=== PATIENT | female | born 1950 | race Caucasian/White ===

== ENCOUNTER → 2016-12-18 | Outpatient (CLI) | payer OTHER, MEDICARE ==
[2016-12-18 09:31] LABS: BASOPHILS # (AUTO) 0.1 X10^3/uL (0.0-0.1); EOSINOPHILS # (AUTO) 0.1 x10^3/uL (0.0-0.2); EOSINOPHILS % (AUTO) 1.2 % (0.9-2.9); HEMATOCRIT 42.9 % (36.0-47.0); HEMOGLOBIN 14.4 g/dL (12.0-16.0); LYMPHOCYTES # (AUTO) 2.9 X10^3/uL (1.3-2.9); LYMPHOCYTES % (AUTO) 38.4 % (21.0-51.0); MEAN CORPUSCULAR HGB CONC 33.6 g/dL (33.0-35.0); MEAN CORPUSCULAR VOLUME 92.1 fL (80.0-100.0); MEAN PLATELET VOLUME 7.9 fL (7.4-11.0); MONOCYTES # (AUTO) 0.5 x10^3/uL (0.3-0.8); MONOCYTES % (AUTO) 6.9 % (0.0-13.0); NEUTROPHILS % (AUTO) 52.5 % (42.0-75.0); PLATELET COUNT 182 X10^3/uL (150.0-450.0); RED BLOOD COUNT 4.65 X10^6/uL (3.5-5.4); RED CELL DISTRIBUTION WIDTH 12.8 % (11.6-16.5); WHITE BLOOD COUNT 7.6 X10^3/uL (3.6-10.0)
[2016-12-18 09:34] LABS: BILIRUBIN,URINE NEGATIVE (NEGATIVE); BLOOD/HEMOGLOBIN,URINE 4+ (NEGATIVE); GLUCOSE, URINE NEGATIVE (NEGATIVE); KETONES,URINE NEGATIVE (NEGATIVE); LEUKOCYTE ESTERASE ,URINE 2+ (NEGATIVE); NITRITES,URINE NEGATIVE (NEGATIVE); PROTEIN,URINE 1+ (NEGATIVE); UROBILINOGEN,URINE NORMAL (NORMAL)
[2016-12-18 09:46] LABS: ALANINE AMINOTRANSFERASE 18 Units/L (12-78); ALBUMIN 4.2 g/dL (3.4-5.0); ALKALINE PHOSPHATASE 74 Units/L (46-116); ASPARTATE AMINO TRANSFERASE 22 Units/L (15-37); BLOOD UREA NITROGEN 14 mg/dL (7-18); CALCIUM 9.4 mg/dL (8.5-10.1); CARBON DIOXIDE 26.1 mmol/L (21-32); CHLORIDE 106 mmol/L (98-107); CHOL/HDL RATIO 2.3 (0.0-5.0); CHOLESTEROL 186 mg/dL (0-200); CREATININE 1.03 mg/dL (0.55-1.02); GLUCOSE 103 mg/dL (65-99); HDL CHOLESTEROL 82 mg/dL (40-60); SODIUM 145 mmol/L (136-145); TOTAL PROTEIN 7.6 g/dL (6.4-8.2); TRIGLYCERIDES 160 mg/dL (0-150); TSH (3RD GENERATION) 1.514 uIU/mL (0.358-3.74); eGFR BLACK RACES > 60 (>60); eGFR NON BLACK RACES 57 (>60)
[2016-12-18 10:38] LABS: APPEARANCE,URINE CLEAR (CLEAR); COLOR,URINE YELLOW (YELLOW); RBC,URINE 0 - 4 /HPF (NEGATIVE)
[2016-12-18 10:39] LABS: AMORPHOUS SEDIMENT,UR TRACE /HPF (NEGATIVE); BACTERIA,URINE NEGATIVE /HPF (NEGATIVE); HYALINE CASTS, URINE FEW /LPF (NEGATIVE); MUCUS,URINE MODERATE /HPF (NEGATIVE); SQUAMOUS EPITHELIAL CELL,UR FEW /HPF (NEGATIVE)
[2016-12-20 10:58] LABS: ALBUMIN (SPEP) 4.95 g/dL (3.75-5.01); ALPHA-1 (SPEP) 0.38 g/dL (0.19-0.46); ALPHA-2 (SPEP) 0.98 g/dL (0.48-1.05)
== END ==
LOC: LAB 09:03
PROVIDERS: ATTEND Nurse Practitioner Family
DX: E78.4 Other hyperlipidemia (principal); I12.9 Hypertensive chronic kidney disease with stage 1 through stage 4 chronic kidney disease, or unspecified chronic kidney disease
CPT/HCPCS: 36415; 80053; 80061; 81001; 84165; 84443; 85025

== ENCOUNTER 2018-05-18 16:19 | Observation (INO) ==
[2018-05-18] MEDS ORDERED: ZOFRAN INJ 4 MG VIAL IVP PRN (17:39)
[2018-05-18 18:05] LABS: BASOPHILS # (AUTO) 0.1 X10^3/uL (0.0-0.1); BASOPHILS % (AUTO) 1.4 % (0.2-1.0); EOSINOPHILS # (AUTO) 0.1 x10^3/uL (0.0-0.2); EOSINOPHILS % (AUTO) 0.9 % (0.9-2.9); HEMATOCRIT 34.9 % (36.0-47.0); HEMOGLOBIN 11.7 g/dL (12.0-16.0); LYMPHOCYTES % (AUTO) 34.6 % (21.0-51.0); MEAN CORPUSCULAR HEMOGLOBIN 29.7 pg (27.0-34.0); MEAN CORPUSCULAR HGB CONC 33.4 g/dL (33.0-35.0); MEAN CORPUSCULAR VOLUME 88.9 fL (80.0-100.0); MEAN PLATELET VOLUME 7.9 fL (7.4-11.0); MONOCYTES # (AUTO) 0.5 x10^3/uL (0.3-0.8); MONOCYTES % (AUTO) 6.4 % (0.0-13.0); NEUTROPHILS # (AUTO) 4.9 x10^3/uL (2.2-4.8); NEUTROPHILS % (AUTO) 56.7 % (42.0-75.0); PLATELET COUNT 212 X10^3/uL (150.0-450.0); RED BLOOD COUNT 3.92 X10^6/uL (3.5-5.4); RED CELL DISTRIBUTION WIDTH 12.8 % (11.6-16.5); WHITE BLOOD COUNT 8.6 X10^3/uL (3.6-10.0)
[2018-05-18 18:16] LABS: ALANINE AMINOTRANSFERASE 18 Units/L (12-78); ALBUMIN 4.5 g/dL (3.4-5.0); ALKALINE PHOSPHATASE 93 Units/L (46-116); ASPARTATE AMINO TRANSFERASE 20 Units/L (15-37); BLOOD UREA NITROGEN 29 mg/dL (7-18); CALCIUM 9.2 mg/dL (8.5-10.1); CHLORIDE 104 mmol/L (98-107); CREATININE 2.68 mg/dL (0.55-1.02); SODIUM 136 mmol/L (136-145); TOTAL PROTEIN 7.8 g/dL (6.4-8.2); eGFR NON BLACK RACES 19 (>60)
[2018-05-18] MEDS: PROTONIX INJ 40 MG VIAL IVP SCH (18:16)
[2018-05-18] MEDS: NS 1000 ML 1,000 ML IV SCH (18:16)
[2018-05-18] MEDS: NORCO 10/325 TAB PO PRN (18:17)
--- NOTE | 2018-05-18 18:24 | RAD ---
HISTORY: Shortness of breath Study: PA and lateral views of the chest. Comparison: None. Findings: The cardiomediastinal silhouette is normal. No focal consolidations, pleural effusions or pneumothora x. Osseous structures demonstrate no acute abnormality. IMPRESSION: 1. No acute cardiopulmonary process. Reported By:
[2018-05-18 19:25] VITALS: BMI 19.5
[2018-05-18] MEDS: COLACE CAP 100 MG PO SCH (21:31)
[2018-05-18] MEDS: MILK OF MAGNESIA PO SCH (21:31)
[2018-05-18 21:48] LABS: BILIRUBIN,URINE NEGATIVE (NEGATIVE); BLOOD/HEMOGLOBIN,URINE 1+ (NEGATIVE); GLUCOSE, URINE NEGATIVE (NEGATIVE); KETONES,URINE NEGATIVE (NEGATIVE); LEUKOCYTE ESTERASE ,URINE 1+ (NEGATIVE); NITRITES,URINE NEGATIVE (NEGATIVE); PROTEIN,URINE 1+ (NEGATIVE); UROBILINOGEN,URINE NORMAL (NORMAL)
[2018-05-18 21:52] LABS: APPEARANCE,URINE CLEAR (CLEAR); BACTERIA,URINE TRACE /HPF (NEGATIVE); COLOR,URINE YELLOW (YELLOW); RENAL EPITHELIAL CELLS,URINE RARE /HPF (NEGATIVE); SQUAMOUS EPITHELIAL CELL,UR RARE /HPF (NEGATIVE)
[2018-05-19 06:04] LABS: BASOPHILS # (AUTO) 0.1 X10^3/uL (0.0-0.1); EOSINOPHILS # (AUTO) 0.1 x10^3/uL (0.0-0.2); EOSINOPHILS % (AUTO) 1.8 % (0.9-2.9); HEMATOCRIT 29.9 % (36.0-47.0); HEMOGLOBIN 10.4 g/dL (12.0-16.0); LYMPHOCYTES # (AUTO) 3.6 X10^3/uL (1.3-2.9); LYMPHOCYTES % (AUTO) 51.4 % (21.0-51.0); MEAN CORPUSCULAR HEMOGLOBIN 30.7 pg (27.0-34.0); MEAN CORPUSCULAR HGB CONC 34.7 g/dL (33.0-35.0); MEAN CORPUSCULAR VOLUME 88.5 fL (80.0-100.0); MEAN PLATELET VOLUME 8.4 fL (7.4-11.0); MONOCYTES # (AUTO) 0.5 x10^3/uL (0.3-0.8); MONOCYTES % (AUTO) 6.7 % (0.0-13.0); NEUTROPHILS # (AUTO) 2.8 x10^3/uL (2.2-4.8); NEUTROPHILS % (AUTO) 39.1 % (42.0-75.0); PLATELET COUNT 163 X10^3/uL (150.0-450.0); RED BLOOD COUNT 3.38 X10^6/uL (3.5-5.4); RED CELL DISTRIBUTION WIDTH 12.9 % (11.6-16.5); WHITE BLOOD COUNT 7.1 X10^3/uL (3.6-10.0)
[2018-05-19 06:22] LABS: ALANINE AMINOTRANSFERASE 17 Units/L (12-78); ALBUMIN 3.6 g/dL (3.4-5.0); ALKALINE PHOSPHATASE 76 Units/L (46-116); ASPARTATE AMINO TRANSFERASE 16 Units/L (15-37); BLOOD UREA NITROGEN 30 mg/dL (7-18); CALCIUM 8.7 mg/dL (8.5-10.1); CARBON DIOXIDE 20.5 mmol/L (21-32); CHLORIDE 109 mmol/L (98-107); CREATININE 2.56 mg/dL (0.55-1.02); SODIUM 139 mmol/L (136-145); TOTAL PROTEIN 6.4 g/dL (6.4-8.2); eGFR NON BLACK RACES 20 (>60)
[2018-05-19] MEDS: NORCO 10/325 TAB PO PRN ×3 (09:11→20:41)
[2018-05-19] MEDS: MILK OF MAGNESIA PO SCH ×2 (09:11→20:41)
[2018-05-19] MEDS: PROTONIX INJ 40 MG VIAL IVP SCH (09:11)
[2018-05-19] MEDS: NS 1000 ML 1,000 ML IV SCH ×2 (10:27→20:41)
[2018-05-19] MEDS ORDERED: PATIENT'S HOME MEDICATION (Oxycodone-Acetaminophen [Oxycodone-Acetaminophen] 1 TAB) PO PRN (12:55)
--- NOTE | 2018-05-19 13:02 | DR.H&P ---
H&P - History & Physical for Day of: H&P Date: 05/18/18 - Chief Complaint Chief Complaint: weakness, diarrhea, pain in lower back - History of Present Illness History of Present Illness: 67 WF DIRECT ADMIT FROM DR HAM OFFICE AFTER PRESENTING WITH CO DIARRHEA X 1-2 WEEKS, LOST 9 LBS IN 2 WEEKS. VERY WEAK ALL OVER. PT WAS HYPOTENSIVE IN THE OFFICE 90/50'S. PT STATES SHE HAD HURT IN LOWER BACK, NOT CURRENTLY TAKING ANY PAIN MEDICATION. PT HAD CMP WITH ELEVATED BUN/ CREAT LEVELS DENIES ANY HX OF RENAL FAILURE. PT ADMITTED FOR TREATMENT OF ACUTE RENAL FAILURE DEHYDRATION AND WEAKNESS, EVALUATION OF DIARRHEA. PT HAD PMH OF SEVERE SPINAL DDD, HYPERTENSION, OA, REILLY. - Past Medical History Past Medical History: Anxiety, Arthritis, Coronary Artery Disease, Hypertension - Past Surgical History Surgical History: Hysterectomy, Ortho Surgery - Family History Family Medical History: [place] - Social History Does patient currently use any type of tobacco product: Yes Have you used tobacco products in the last 12 months: Yes Type of Tobacco Use: Cigarettes Alcohol Use: Occasionally Drug Use: None - Medications Home Medications: No Known Drug Allergies Allergy (Verified 05/18/18 17:38) CONTINUE taking the following medications amlodipine 5 mg PO DAILY 05/18/18 [History] clopidogrel 75 mg PO DAILY 05/18/18 [History] diazepam 5 mg PO BID 05/18/18 [History] lisinopril 20 mg PO DAILY 05/18/18 [History] oxycodone-acetaminophen 1 tab PO TID PRN 05/18/18 [History] pregabalin [Lyrica] 150 mg PO BID 05/18/18 [History] quetiapine 200 mg PO HS 05/18/18 [History] - Review of Systems Constitutional: Weakness, Malaise Eyes: No Symptoms Reported ENT: No Symptoms Reported Respiratory: SOB with Excertion Gastrointestinal: Nausea, Diarrhea Genitourinary: No Symptoms Reported Musculoskeletal: Back Pain, Leg Pain Skin: No Symptoms Reported Neurological: Weakness - Physical Exam Vital Signs: Temperature 97.8 F Pulse Rate [Left Brachial] 84 Respiratory Rate 20 Blood Pressure [Right Arm] 119/72 O2 Sat by Pulse Oximetry 95 Oriented: Normal Eyes: Normal Ear: Normal Nose: Normal Throat: Normal Respiratory: RLL Diminished, LLL Diminished Cardiovascular: Tachycardia. negative: Edema : Normal Auscultation: Bowel Sounds: Increased Tenderness: Epigastric Skin: Decreased Turgur Musculoskeletal: Back:Thoracic, Back:Lumbar, Tender Psychiatric: Anxiety Affect: Anxious Speech Pattern: Clear, Appropriate - Assessment/Plan (1) Acute renal failure Status: Acute Plan: ADMIT, CXR ON ADMISSION. VERIFY HOME MEDS, BP MONITORING. IV HYDRATION, GENTLE ORAL HYDRATION CLEAR LIQUIDS. STOOL STUDIES, AM LABS. PAIN CONTROL, NAUSEA CONTROL (2) Dehydration Status: Acute (3) Diarrhea Status: Acute (4) Hypertension Status: Acute (5) Degenerative lumbar spinal stenosis Status: Acute (6) Degenerative spinal arthritis Status: Acute - Allergies Allergies/Adverse Reactions: Allergies Allergy/AdvReac Type Severity Reaction Status Date / Time No Known Drug Allergies Allergy Verified 05/18/18 17:38
--- NOTE | 2018-05-19 13:08 | PCM.PROG ---
Progress Note - Progress Note for Day of Date of Exam: 05/19/18 - Subjective Subjective: 67 WF ADMITTED ON 05/18 WITH CO WEAKNESS, DEHYDRATION, DIARRHEA. PT WAS IN ACUTE RENAL FAILURE, STARTED ON IV HYDRATION WITH SLIGHT IMPROVEMENT IN BUN/CREAT THIS AM. PT REPORTS IMPROVING NAUSEA, UNABLE TO OBTAIN STOOL STUDIES. PLAN TO ADVANCE DIET, URINE CULTURE PENDING. WILL INCREASE NS, ENCOURAGE ORAL HYDRATION IMPROVING BP WILL CONTINUE TO HOLD ANTIHYPERTENSIVE MEDICATION - Past Medical Family Social History Past Med/Fam/Surg Hx: No changes since H&P Allergies: Allergies No Known Drug Allergies Allergy (Verified 05/18/18 17:38) - Review of Systems ROS: No change since H&P - Vital Signs and I&O's Vital Signs: Temperature 97.8 F Pulse Rate [Left Brachial] 84 Respiratory Rate 20 Blood Pressure [Right Arm] 119/72 O2 Sat by Pulse Oximetry 95 Intake and Output: Intake & Output 05/17/18 05/18/18 05/19/18 05/20/18 11:59 11:59 11:59 11:59 Intake Total 462 / 462 Balance 462 / 462 - Physical Exam Oriented: Normal Eyes: Normal Ear: Normal Nose: Normal Throat: Normal Respiratory: Diminished Cardiovascular: Tachycardia. negative: Edema : Normal Auscultation: Bowel Sounds: Increased Tenderness: Epigastric Skin: Decreased Turgur Musculoskeletal: Back:Thoracic, Back:Lumbar, Tender Psychiatric: Anxiety Affect: Anxious Speech Pattern: Clear, Appropriate - Laboratory and Diagnostics Result Diagrams: 05/19/18 05:10 05/19/18 05:10 Labs: 05/18/18 21:27 Urine,Clean Catch Urine Culture - Preliminary Laboratory WBC 7.1 X10^3/uL (3.6-10.0) 05/19/18 05:10 RBC 3.38 X10^6/uL (3.5-5.4) L 05/19/18 05:10 Hgb 10.4 g/dL (12.0-16.0) L 05/19/18 05:10 Hct 29.9 % (36.0-47.0) L 05/19/18 05:10 MCV 88.5 fL (80.0-100.0) 05/19/18 05:10 MCH 30.7 pg (27.0-34.0) 05/19/18 05:10 MCHC 34.7 g/dL (33.0-35.0) 05/19/18 05:10 RDW 12.9 % (11.6-16.5) 05/19/18 05:10 Plt Count 163 X10^3/uL (150.0-450.0) 05/19/18 05:10 MPV 8.4 fL (7.4-11.0) 05/19/18 05:10 Neut % (Auto) 39.1 % (42.0-75.0) L 05/19/18 05:10 Lymph % (Auto) 51.4 % (21.0-51.0) H 05/19/18 05:10 [place] % (Auto) 6.7 % (0.0-13.0) 05/19/18 05:10 Eos % (Auto) 1.8 % (0.9-2.9) 05/19/18 05:10 Baso % (Auto) 1.0 % (0.2-1.0) 05/19/18 05:10 Neut # (Auto) 2.8 x10^3/uL (2.2-4.8) 05/19/18 05:10 Lymph # (Auto) 3.6 X10^3/uL (1.3-2.9) H 05/19/18 05:10 [place] # (Auto) 0.5 x10^3/uL (0.3-0.8) 05/19/18 05:10 Eos # (Auto) 0.1 x10^3/uL (0.0-0.2) 05/19/18 05:10 Baso # (Auto) 0.1 X10^3/uL (0.0-0.1) 05/19/18 05:10 Absolute Nucleated RBC 0.0 /100WBC 05/19/18 05:10 Sodium 139 mmol/L (136-145) 05/19/18 05:10 Corrected Sodium TNP 05/19/18 05:10 Potassium 4.5 mmol/L (3.5-5.1) 05/19/18 05:10 Chloride 109 mmol/L (98-107) H 05/19/18 05:10 Carbon Dioxide 20.5 mmol/L (21-32) L 05/19/18 05:10 BUN 30 mg/dL (7-18) H 05/19/18 05:10 Creatinine 2.56 mg/dL (0.55-1.02) H 05/19/18 05:10 Est GFR (MDRD) Af Amer 24 (>60) L 05/19/18 05:10 Est GFR (MDRD) Non-Af 20 (>60) L 05/19/18 05:10 Glucose 90 mg/dL (65-99) 05/19/18 05:10 Calcium 8.7 mg/dL (8.5-10.1) 05/19/18 05:10 Corrected Calcium TNP 05/19/18 05:10 Total Bilirubin 0.20 mg/dL (0.2-1.0) 05/19/18 05:10 AST 16 Units/L (15-37) 05/19/18 05:10 ALT 17 Units/L (12-78) 05/19/18 05:10 Alkaline Phosphatase 76 Units/L (46-116) 05/19/18 05:10 Total Protein 6.4 g/dL (6.4-8.2) 05/19/18 05:10 Albumin 3.6 g/dL (3.4-5.0) 05/19/18 05:10 Globulin 2.8 g/dL (2.5-4.5) 05/19/18 05:10 Albumin/Globulin Ratio 1.3 Ratio (1.1-2.1) 05/19/18 05:10 Specimen Type Clean catch urine 05/18/18 21:27 Urine Color Yellow (YELLOW) 05/18/18 21:27 Urine Appearance Clear (CLEAR) 05/18/18 21:27 Urine pH 5.0 (5.0 - 8.0) 05/18/18 21:27 Ur Specific [place] 1.015 (1.000-1.030) 05/18/18 21:27 Urine Protein 1+ (NEGATIVE) 05/18/18 21:27 Urine Glucose (UA) Negative (NEGATIVE) 05/18/18 21: Urine Ketones Negative (NEGATIVE) 05/18/18 21: Urine Occult Blood 1+ (NEGATIVE) 05/18/18 21: Urine Nitrite Negative (NEGATIVE) 05/18/18 21: Urine Bilirubin Negative (NEGATIVE) 05/18/18 21:27 Urine Urobilinogen Normal (NORMAL) 05/18/18 21:27 Ur Leukocyte Esterase 1+ (NEGATIVE) 05/18/18 21:27 Urine RBC 3-5 /HPF (NONE SEEN) 05/18/18 21:27 Urine WBC 3-5 /HPF (NONE SEEN) 05/18/18 21:27 Ur Squamous Epith Cells Rare /HPF (NEGATIVE) 05/18/18 21:27 Ur Renal Epithelial Cell Rare /HPF (NEGATIVE) 05/18/18 21:27 Urine Bacteria Trace /HPF (NEGATIVE) 05/18/18 21:27 Ur Culture Indicated? Yes/culture set up 05/18/18 21:27 - Plan (1) Acute renal failure Status: Acute Plan: CONTINUE ORAL AND IV HYDRATION. CXR ON ADMISSION. VERIFY HOME MEDS, BP MONITORING. ADVANCE DIET. STOOL STUDIES, AM LABS. PAIN CONTROL, NAUSEA CONTROL (2) Dehydration Status: Acute (3) Diarrhea Status: Acute (4) Hypertension Status: Acute (5) Degenerative lumbar spinal stenosis Status: Acute (6) Degenerative spinal arthritis Status: Acute
[2018-05-19] MEDS: PLAVIX PO SCH (13:31)
[2018-05-19] MEDS: VALIUM PO SCH ×2 (13:31→20:42)
[2018-05-19] MEDS: COLACE CAP 100 MG PO SCH (20:42)
[2018-05-19 20:53] LABS: CRYPTOSPORIDIUM PARVUM ANTIGEN NEGATIVE (NEGATIVE); GIARDIA LAMBLIA ANTIGEN NEGATIVE (NEGATIVE); STOOL FOR WBC NEGATIVE (NEGATIVE)
[2018-05-20 05:24] LABS: BASOPHILS # (AUTO) 0.1 X10^3/uL (0.0-0.1); BASOPHILS % (AUTO) 0.9 % (0.2-1.0); EOSINOPHILS # (AUTO) 0.1 x10^3/uL (0.0-0.2); EOSINOPHILS % (AUTO) 1.9 % (0.9-2.9); HEMATOCRIT 27.4 % (36.0-47.0); HEMOGLOBIN 9.5 g/dL (12.0-16.0); LYMPHOCYTES # (AUTO) 2.6 X10^3/uL (1.3-2.9); LYMPHOCYTES % (AUTO) 39.6 % (21.0-51.0); MEAN CORPUSCULAR HEMOGLOBIN 30.6 pg (27.0-34.0); MEAN CORPUSCULAR HGB CONC 34.7 g/dL (33.0-35.0); MEAN CORPUSCULAR VOLUME 88.2 fL (80.0-100.0); MEAN PLATELET VOLUME 7.9 fL (7.4-11.0); MONOCYTES # (AUTO) 0.5 x10^3/uL (0.3-0.8); MONOCYTES % (AUTO) 8.2 % (0.0-13.0); NEUTROPHILS # (AUTO) 3.3 x10^3/uL (2.2-4.8); NEUTROPHILS % (AUTO) 49.4 % (42.0-75.0); PLATELET COUNT 162 X10^3/uL (150.0-450.0); RED BLOOD COUNT 3.11 X10^6/uL (3.5-5.4); WHITE BLOOD COUNT 6.7 X10^3/uL (3.6-10.0)
[2018-05-20 05:43] LABS: ALANINE AMINOTRANSFERASE 15 Units/L (12-78); ALBUMIN 3.4 g/dL (3.4-5.0); ALKALINE PHOSPHATASE 70 Units/L (46-116); ASPARTATE AMINO TRANSFERASE 15 Units/L (15-37); BLOOD UREA NITROGEN 28 mg/dL (7-18); CALCIUM 8.6 mg/dL (8.5-10.1); CARBON DIOXIDE 20.9 mmol/L (21-32); CHLORIDE 112 mmol/L (98-107); SODIUM 140 mmol/L (136-145); eGFR NON BLACK RACES 24 (>60)
[2018-05-20] MEDS: MILK OF MAGNESIA PO SCH (08:35)
[2018-05-20] MEDS: PLAVIX PO SCH (08:36)
[2018-05-20] MEDS: PROTONIX INJ 40 MG VIAL IVP SCH (08:36)
[2018-05-20] MEDS: VALIUM PO SCH (08:36)
[2018-05-20] MEDS ORDERED: MEGACE PO SCH (09:00)
[2018-05-20] MEDS: NORCO 10/325 TAB PO PRN ×2 (09:49→15:13)
[2018-05-20] MEDS ORDERED: NS 250 ML IV 250 ML IV ONE (11:16)
[2018-05-20] MEDS ORDERED: NS 1000 ML 1,000 ML IV SCH (12:00)
[2018-05-20 14:50] LABS: ALANINE AMINOTRANSFERASE 15 Units/L (12-78); ALBUMIN 3.5 g/dL (3.4-5.0); ALKALINE PHOSPHATASE 67 Units/L (46-116); ASPARTATE AMINO TRANSFERASE 12 Units/L (15-37); BLOOD UREA NITROGEN 23 mg/dL (7-18); CALCIUM 8.6 mg/dL (8.5-10.1); CARBON DIOXIDE 22.7 mmol/L (21-32); CHLORIDE 111 mmol/L (98-107); COR NA(FOR HYPERGLY) 140 mmol/L (136-145); CREATININE 2.02 mg/dL (0.55-1.02); SODIUM 140 mmol/L (136-145); TOTAL PROTEIN 6.2 g/dL (6.4-8.2); eGFR NON BLACK RACES 26 (>60)
[2018-05-20 16:29] VITALS: BP 117/78
--- NOTE | 2018-05-29 18:18 | PCM.DCPLAN ---
Discharge Summary - Admission Date Date of Admission: 05/18/18 - Discharge Date Discharge Date: 05/20/18 - Admission Diagnoses (1) Acute renal failure Status: Acute (2) Dehydration Status: Acute (3) Diarrhea Status: Acute (4) Hypertension Status: Acute - Discharge Diagnoses Discharge Diagnosis: SAME ADMISSION DIAGNOSIS - Discharge Medications Discharge Medications: Home Medication List clopidogrel 75 mg PO DAILY 05/18/18 [History] diazepam 5 mg PO BID 05/18/18 [History] oxycodone-acetaminophen 1 tab PO TID PRN 05/18/18 [History] pregabalin 150 mg PO BID 05/18/18 [History] ferrous sulfate [FeroSul] 325 mg PO QDAY #30 tab 05/20/18 [Rx] quetiapine 100 mg PO HS #0 tab 05/20/18 [Rx] Prescriptions: ferrous sulfate [FeroSul] SILVANA DIAL - Hospital Course Vital Signs: Temperature 98.1 F Pulse Rate [Left Brachial] 76 Respiratory Rate 20 Blood Pressure [Right Arm] 117/78 O2 Sat by Pulse Oximetry 98 Latest Lab Results: Laboratory Last Values WBC 6.7 X10^3/uL (3.6-10.0) 05/20/18 04:55 RBC 3.11 X10^6/uL (3.5-5.4) L 05/20/18 04:55 Hgb 9.5 g/dL (12.0-16.0) L 05/20/18 04:55 Hct 27.4 % (36.0-47.0) L 05/20/18 04:55 MCV 88.2 fL (80.0-100.0) 05/20/18 04:55 MCH 30.6 pg (27.0-34.0) 05/20/18 04:55 MCHC 34.7 g/dL (33.0-35.0) 05/20/18 04:55 RDW 13.0 % (11.6-16.5) 05/20/18 04:55 Plt Count 162 X10^3/uL (150.0-450.0) 05/20/18 04:55 MPV 7.9 fL (7.4-11.0) 05/20/18 04:55 Neut % (Auto) 49.4 % (42.0-75.0) 05/20/18 04:55 Lymph % (Auto) 39.6 % (21.0-51.0) 05/20/18 04:55 [place] % (Auto) 8.2 % (0.0-13.0) 05/20/18 04:55 Eos % (Auto) 1.9 % (0.9-2.9) 05/20/18 04:55 Baso % (Auto) 0.9 % (0.2-1.0) 05/20/18 04:55 Neut # (Auto) 3.3 x10^3/uL (2.2-4.8) 05/20/18 04:55 Lymph # (Auto) 2.6 X10^3/uL (1.3-2.9) 05/20/18 04:55 [place] # (Auto) 0.5 x10^3/uL (0.3-0.8) 05/20/18 04:55 Eos # (Auto) 0.1 x10^3/uL (0.0-0.2) 05/20/18 04:55 Baso # (Auto) 0.1 X10^3/uL (0.0-0.1) 05/20/18 04:55 Absolute Nucleated RBC 0.1 /100WBC 05/20/18 04:55 Sodium 140 mmol/L (136-145) 05/20/18 13:50 Corrected Sodium 140 mmol/L (136-145) 05/20/18 13:50 Potassium 4.7 mmol/L (3.5-5.1) 05/20/18 13:50 Chloride 111 mmol/L (98-107) H 05/20/18 13:50 Carbon Dioxide 22.7 mmol/L (21-32) 05/20/18 13:50 BUN 23 mg/dL (7-18) H 05/20/18 13:50 Creatinine 2.02 mg/dL (0.55-1.02) H 05/20/18 13:50 Est GFR (MDRD) Af Amer 32 (>60) L 05/20/18 13:50 Est GFR (MDRD) Non-Af 26 (>60) L 05/20/18 13:50 Glucose 111 mg/dL (65-99) H 05/20/18 13:50 Calcium 8.6 mg/dL (8.5-10.1) 05/20/18 13:50 Corrected Calcium TNP 05/20/18 13:50 Iron 34 ug/dL (50-175) L 05/20/18 04:55 Transferrin 149 mg/dL (202-364) L 05/20/18 04:55 Ferritin 205 ng/mL (8-252) 05/20/18 04:55 Total Bilirubin 0.20 mg/dL (0.2-1.0) 05/20/18 13:50 AST 12 Units/L (15-37) L 05/20/18 13:50 ALT 15 Units/L (12-78) 05/20/18 13:50 Alkaline Phosphatase 67 Units/L (46-116) 05/20/18 13:50 Total Protein 6.2 g/dL (6.4-8.2) L 05/20/18 13:50 Albumin 3.5 g/dL (3.4-5.0) 05/20/18 13:50 Globulin 2.7 g/dL (2.5-4.5) 05/20/18 13:50 Albumin/Globulin Ratio 1.3 Ratio (1.1-2.1) 05/20/18 13:50 Vitamin B12 617 pg/mL (193-986) 05/20/18 04:55 Folate 5.6 ng/mL (>8.6) L 05/20/18 04:55 Specimen Type Clean catch urine 05/18/18 21:27 Urine Color Yellow (YELLOW) 05/18/18 21: Urine Appearance Clear (CLEAR) 05/18/18 21: Urine pH 5.0 (5.0 - 8.0) 05/18/18 21:27 Ur Specific [place] 1.015 (1.000-1.030) 05/18/18 21:27 Urine Protein 1+ (NEGATIVE) 05/18/18 21: Urine Glucose (UA) Negative (NEGATIVE) 05/18/18 21: Urine Ketones Negative (NEGATIVE) 05/18/18 21: Urine Occult Blood 1+ (NEGATIVE) 05/18/18 21: Urine Nitrite Negative (NEGATIVE) 05/18/18 21: Urine Bilirubin Negative (NEGATIVE) 05/18/18 21: Urine Urobilinogen Normal (NORMAL) 05/18/18 21:27 Ur Leukocyte Esterase 1+ (NEGATIVE) 05/18/18 21:27 Urine RBC 3-5 /HPF (NONE SEEN) 05/18/18 21:27 Urine WBC 3-5 /HPF (NONE SEEN) 05/18/18 21:27 Ur Squamous Epith Cells Rare /HPF (NEGATIVE) 05/18/18 21:27 Ur Renal Epithelial Cell Rare /HPF (NEGATIVE) 05/18/18 21:27 Urine Bacteria Trace /HPF (NEGATIVE) 05/18/18 21:27 Ur Culture Indicated? Yes/culture set up 05/18/18 21:27 Stool Description 10g drk grn lqd 05/19/18 18:51 Stl Occult Blood (IFOB) Negative (NEGATIVE) 05/19/18 18:51 Stool for White Cells Negative (NEGATIVE) 05/19/18 18:51 Stl C. diff Tox B Gene Negative (NEGATIVE) 05/19/18 18:51 Stl C. diff [id number] Negative (NEGATIVE) 05/19/18 18:51 Cryptosporid parvum Ag Negative (NEGATIVE) 05/19/18 18:51 Giardia lamblia Ag Negative (NEGATIVE) 05/19/18 18:51 Hospital Course: 67 WF ADMITTED ON 05/18 WITH CO WEAKNESS, DEHYDRATION, DIARRHEA. PT WAS IN ACUTE RENAL FAILURE, STARTED ON IV HYDRATION WITH IMPROVEMENT IN BUN/CREAT. NAUSEA IMPROVED DIET WAS ADVANCED. BP MONITORED WITH IMPROVEMENT. SYMPTOMS IMPROVED AND PATIENT WAS DISCHARGED HOME TO BE FOLLOWED ON OP BASIS. - Discharge Plan Disposition: 01 HOME, SELF-CARE Condition: Stable Prescriptions: ferrous sulfate [FeroSul] 325 mg PO QDAY #30 tab - Follow ups/Referrals Follow ups/Referrals: SILVANA DIAL [Nurse Practitioner] - 05/30/18 2:00 pm - Instructions Instructions: Steps to Quit Smoking, [id number], Acute Kidney Injury, Adult, Dehydration, Adult, [id number], Hypertension, Yvyo-oh-[id number], Diarrhea, Adult, [id number] Additional Instructions: REST, HYDRATION REPEAT CMP ON WEDNESDAY NEXT WEEK IN DR HAM OFFICE RESUME HOME MEDS INSTRUCTED, HOLDING BP MEDICATION KEEP BP DIARY. IF BP >140/90 MAY TAKE AMLODIPINE 2.5 MG OF HOME MEDICATION RETURN TO ER IF CONDITION CHANGES OR WORSENS Forms: Patient Portal
== END 2018-05-20 16:45 | disposition home or self-care (01) ==
LOC: MED/SURG
PROVIDERS: ADMIT Internal Medicine; ATTEND Internal Medicine
DX: I10 Essential (primary) hypertension; R19.7 Diarrhea, unspecified; I25.10 Atherosclerotic heart disease of native coronary artery without angina pectoris; R53.1 Weakness; R94.4 Abnormal results of kidney function studies; M48.061 Spinal stenosis, lumbar region without neurogenic claudication; M54.5 Low back pain; N17.8 Other acute kidney failure; E86.0 Dehydration; M46.80 Other specified inflammatory spondylopathies, site unspecified; F41.8 Other specified anxiety disorders; R06.02 Shortness of breath; D64.9 Anemia, unspecified
CPT/HCPCS: 36415; 71020; 71046; 80053; 81001; 82270; 82607; 82728; 82746; 83540; 83630; 84466; 85025; 87045; 87086; 87328; 87329; 87427; 87449; 87493; 87899; A4222; C9113; S0179; G0378; J7030; J7050

== ENCOUNTER 2024-05-05 16:08 | Observation (INO) ==
--- NOTE | 2024-05-05 16:59 | DR.PSYCH ---
HPI Time Seen Time Seen by Provider: 05/05/24 16:58 PCP Primary Care Physician: Afshin Complaint Chief Complaint Doctors Comments: Patient was on hospice she has lung cancer with mets to brain and to left nose but at this time the is very incap able of taking care of her right now and show is hospice. The patient does not have a place to go to such as respite for her care from here on the very distraught over the last couple days and he stated that initially he thought the best way I was to him in her life and he is also the day she was able to talk to individuals with the hospice and he decided he can try to come to the emergency room and get her admitted for further treatment of this terminal cancer that she has. They did have a tragedy were her daughter was killed in the accident not too long ago and did not want to that also. Chief Complaint:: Pt presented to ED via EMS w/c/o pt combative at home w/ her and daughter; cannot manage her at home anymore. Hospice nurse states pt recently started pt on O2 at home d/t O2 sats dropping at home. Per EMS, pt was on room air on arrival, sats 89-91%, placed on 2L NC, sats up to 91-94%. EMS states pt cooperative with them on scene. Hospice nurse at nurses station, states hospice will be revoked at this time, pending fpc pl acement. Hospice placed fentanyl patch on pt CLINICAL PSYCHOLOGIST. COVID-19 Coronavirus risk:travel/contact w/high risk person: No Has patient experienced Coronavirus symptoms: No Source History Provided: EMS, Shelter and Other Mode of Arrival Mode of Arrival: EMS Timing Onset of Chief Complaint: 05/05/24 PMH PMH Past Medical History: Yes Past Medical History: Anxiety, Arthritis, Coronary Artery Disease and Hypertension Past Medical History Comment: lung cancer, brain cancer Past Surgical History: Yes Surgical History: Ortho Surgery and Other Family History History of Family Medical Conditions: Yes Family Medical History: [place] Social History Does any household member use tobacco: No Alcohol Use: None Do you use any recreational Drugs:: No Lives With: Family Lives Where: Home Travel Risk Coronavirus risk:travel/contact w/high risk person: No Has patient experienced Coronavirus symptoms: No Infectious screening In the last 2 months have you had wt loss of >10#?: NO Have you had fever, night sweats or hemotysis?: No Have you traveled outside the country in the last 6 months?: No Isolation: Standard ROS Review of Systems Constitutional: Malaise, Weakness, Fatigue, Loss of Appetite and Other (progressive lethargy) Eyes: No Symptoms Reported ENTM: No Symptoms Reported Respiratoy: Other (rhonchi) Cardiovascular: No Symptoms Reported Gastrointestinal/Abdominal: Diarrhea Genitourinary: No Symptoms Reported Neurological: Weakness and Problems Walking Musculoskeletal: No Symptoms Reported Integumentary: No Symptoms Reported Hematologic/Lymphatic: No Symptoms Reported Endocrine: No Symptoms Reported Psychiatric: Depression PE Vitals Vitals: Vital Signs Temperature 98.1 F Pulse Rate 103 Respiratory Rate 14 Blood Pressure 154/93 Blood Pressure 151/85 Blood Pressure 134/84 Blood Pressure 134/87 O2 Sat by Pulse Oximetry 93 General Limitations: Physical Limitation (alethargy and weakness limits ambulation) General Appearance: Lethargic and Cachectic Head Head Exam: Normal Inspection Eyes Eye exam: Normal Appearance ENT ENT Exam: Other (dry mucus membrames) Neck Neck Exam: Normal Inspection Chest Chest Inspection: Normal Inspection and Symmetric Chest Wall Rise Respiratory Respiratory Exam: Other (rhonchi) Respiratory Exam: Bilateral: Rhonchi Abdominal Exam Abdominal Exam: Normal Inspection Extremities Extremities Exam: Normal Inspection Back Back Exam: Normal Inspection Neurologic Neurological Exam: Other (disoriented) Motor Strength - LUE: 2/5 Motor Strength - RUE: 2/5 Motor Strength - LLE: 2/5 Motor Strength - RLE: 2/5 Psychiatric Psychiatric Exam: Agitated Skin Skin Exam: Warm, Dry and Pallor COURSE Treatment Treatment: failure to thrive,cachexia,lung cancer,brain cancer,lymph node cancer, this patient was started on D5 half-normal saline at 125 cc an hour. Patient was also given Ativan 1 mg IV for agitation. This patient did have elevated sodium of 151 other labs were relatively normal globin was 11.6 hem atocrit 33. The patient had troponin of 33 chest x-ray did not show any infiltrate. This patient was discussed with Dr. Zulma Fernandez and he stated he would accept the patient for admission. Case management was called and they said the patient to be put in on observation. ROR Labs Reviewed Laboratory Results Reviewed?: Yes 05/05/24 17:13 05/05/24 17:10 Laboratory: WBC 8.9 X10^3/uL (3.6-10.0) 05/05/24 17:13 RBC 3.90 X10^6/uL (3.5-5.4) 05/05/24 17:13 Hgb 11.6 g/dL (12.0-16.0) L 05/05/24 17:13 Hct 33.8 % (36.0-47.0) L 05/05/24 17:13 MCV 86.5 fL (80.0-100.0) 05/05/24 17:13 MCH 29.7 pg (27.0-34.0) 05/05/24 17:13 MCHC 34.3 g/dL (33.0-35.0) 05/05/24 17:13 RDW 15.0 % (11.6-16.5) 05/05/24 17:13 Plt Count 573 X10^3/uL (150.0-450.0) H 05/05/24 17:13 Plt Count Comment Increased (ADEQUATE) A 05/05/24 17:13 MPV 9.7 fL (7.4-11.0) 05/05/24 17:13 Neut % (Auto) 78.8 % (42.0-75.0) H 05/05/24 17:13 Lymph % (Auto) 12.7 % (21.0-51.0) L 05/05/24 17:13 [place] % (Auto) 6.5 % (0.0-13.0) 05/05/24 17:13 Eos % (Auto) 1.5 % (0.9-2.9) 05/05/24 17:13 Baso % (Auto) 0.5 % (0.2-1.0) 05/05/24 17:13 Neut # (Auto) 7.0 x10^3/uL (2.2-4.8) H 05/05/24 17:13 Lymph # (Auto) 1.1 X10^3/uL (1.3-2.9) L 05/05/24 17:13 [place] # (Auto) 0.6 x10^3/uL (0.3-0.8) 05/05/24 17:13 Eos # (Auto) 0.1 x10^3/uL (0.0-0.2) 05/05/24 17:13 Baso # (Auto) 0.0 X10^3/uL (0.0-0.1) 05/05/24 17:13 Absolute Nucleated RBC 0.1 /100WBC 05/05/24 17:13 Total Counted 100 05/05/24 17:13 Neutrophils % (Manual) 75 % (39-76) 05/05/24 17:13 Band Neutrophils % 0 % (0-10) 05/05/24 17:13 Lymphocytes % (Manual) 20 % (13-43) 05/05/24 17:13 Monocytes % (Manual) 3 % (4-9) L 05/05/24 17:13 Eosinophils % (Manual) 2 % (0-6) 05/05/24 17:13 Basophils % (Manual) 0 % (0-1) 05/05/24 17:13 Plt Morphology Comment Normal (NORMAL) 05/05/24 17:13 RBC Morphology Abnormal (NORMAL) A 05/05/24 17:13 [place] Cells Slight A 05/05/24 17:13 Sodium 151 mmol/L (136-145) H* 05/05/24 17:10 Corrected Sodium 151 mmol/L (136-145) H 05/05/24 17:10 Potassium 4.0 mmol/L (3.5-5.1) 05/05/24 17:10 Chloride 109 mmol/L (98-107) H 05/05/24 17:10 Carbon Dioxide 18.9 mmol/L (21-32) L 05/05/24 17:10 BUN 13 mg/dL (7-18) 05/05/24 17:10 Creatinine 0.97 mg/dL (0.55-1.02) 05/05/24 17:10 Est GFR (MDRD) Af Amer > 60 (>60) 05/05/24 17:10 Est GFR (MDRD) Non-Af > 60 (>60) 05/05/24 17:10 Glucose 120 mg/dL (65-99) H 05/05/24 17:10 Calcium 10.5 mg/dL (8.5-10.1) H 05/05/24 17:10 Corrected Calcium 11.4 mg/dL (8.5-10.1) H 05/05/24 17:10 Total Bilirubin 0.40 mg/dL (0.2-1.0) 05/05/24 17:10 AST 31 Units/L (15-37) 05/05/24 17:10 ALT 25 Units/L (12-78) 05/05/24 17:10 Alkaline Phosphatase 174 Units/L (46-116) H 05/05/24 17:10 Creatine Kinase 59 Units/L (26-192) 05/05/24 17:10 Troponin I High Sens 31.1 ng/L (4.0-60.0) 05/05/24 17:10 Total Protein 7.5 g/dL (6.4-8.2) 05/05/24 17:10 Albumin 2.9 g/dL (3.4-5.0) L 05/05/24 17:10 Globulin 4.6 g/dL (2.5-4.5) H 05/05/24 17:10 Albumin/Globulin Ratio 0.6 Ratio (1.1-2.1) L 05/05/24 17:10 Opioid Opioid Risk Tool Age (Nate box if 16-45): No History of Preadolescent Sexual Abuse: No Total: 0 Total Score Risk Category: Low Risk Copyright: Bhupinder POLANCO predicting aberrant behaviors Discharge Plan Diagnosis Discharge Problem: Adult failure to thrive, Lung cancer metastatic to brain, Cachexia, Anxiety and depression Discharge Plan Patient Disposition: 09 ADMITTED INPATIENT Condition: Stable Prescriptions: No Action levetiracetam 750 mg tablet 750 mg PO BID Qty: 60 0RF vilazodone 40 mg tablet 40 mg PO QDAY Qty: 90 3RF fluoxetine 40 mg capsule 40 mg PO QDAY pantoprazole 40 mg tablet,delayed release (DR/EC) 40 mg PO QDAY lorazepam (bulk) 100 % powder 1 ea MISCELLANEOUS TID PRN Patient Comments: [NO ORIGINAL SIG] fentanyl 25 mcg/hr patch 72 hour 1 patch Q3D Health Concerns: Post Hospitalization: new medications and changes needed to prevent readmission or further decline. Pt educated and given instructions on all concerns. Plan of Treatment: Continue with present treatment and follow up plan. Pt is to keep follow up appointment as instructed and take medications as ordered. Orders to Discharge Patient Discharge Orders: Transfer (Routine); Ordered 05/05/24 Ordered By: David Wan Follow ups/Referrals Follow ups/Referrals: Bryant Perez [Primary Care Provider] - 3 days Instructions Stand Alone Forms: Post Hospital Follow Up Care
[2024-05-05 17:25] LABS: BASOPHILS % (AUTO) 0.5 % (0.2-1.0); EOSINOPHILS # (AUTO) 0.1 x10^3/uL (0.0-0.2); EOSINOPHILS % (AUTO) 1.5 % (0.9-2.9); HEMATOCRIT 33.8 % (36.0-47.0); HEMOGLOBIN 11.6 g/dL (12.0-16.0); LYMPHOCYTES # (AUTO) 1.1 X10^3/uL (1.3-2.9); LYMPHOCYTES % (AUTO) 12.7 % (21.0-51.0); MEAN CORPUSCULAR HEMOGLOBIN 29.7 pg (27.0-34.0); MEAN CORPUSCULAR HGB CONC 34.3 g/dL (33.0-35.0); MEAN CORPUSCULAR VOLUME 86.5 fL (80.0-100.0); MEAN PLATELET VOLUME 9.7 fL (7.4-11.0); MONOCYTES # (AUTO) 0.6 x10^3/uL (0.3-0.8); MONOCYTES % (AUTO) 6.5 % (0.0-13.0); NEUTROPHILS % (AUTO) 78.8 % (42.0-75.0); PLATELET COUNT 573 X10^3/uL (150.0-450.0); WHITE BLOOD COUNT 8.9 X10^3/uL (3.6-10.0)
[2024-05-05 17:36] LABS: ALANINE AMINOTRANSFERASE 25 Units/L (12-78); ALBUMIN 2.9 g/dL (3.4-5.0); ALKALINE PHOSPHATASE 174 Units/L (46-116); ASPARTATE AMINO TRANSFERASE 31 Units/L (15-37); BLOOD UREA NITROGEN 13 mg/dL (7-18); CALCIUM 10.5 mg/dL (8.5-10.1); CARBON DIOXIDE 18.9 mmol/L (21-32); CHLORIDE 109 mmol/L (98-107); COR CA(FOR HYPOALB) 11.4 mg/dL (8.5-10.1); CREATINE KINASE 59 Units/L (26-192); CREATININE 0.97 mg/dL (0.55-1.02); GLUCOSE 120 mg/dL (65-99); TOTAL PROTEIN 7.5 g/dL (6.4-8.2); eGFR NON BLACK RACES > 60 (>60)
[2024-05-05 17:40] LABS: COR NA(FOR HYPERGLY) 151 mmol/L (136-145); SODIUM 151 mmol/L (136-145)
[2024-05-05 17:54] LABS: BAND NEUTROPHILS % 0 % (0-10); BASOPHILS % (MANUAL) 0 % (0-1)
[2024-05-05 17:55] LABS: BURR CELLS SLIGHT; PLATELET MORPHOLOGY COMMENT NORMAL (NORMAL)
[2024-05-05] MEDS: ATIVAN INJ 2 MG VIAL IVP ONE (20:23)
[2024-05-05] MEDS: D5 1/2 NS + KCL 20 MEQ/L 1,000 ML IV SCH (20:27)
[2024-05-05] MEDS ORDERED: ATIVAN INJ 2 MG VIAL IVP PRN (20:43)
[2024-05-06] MEDS: KEPPRA TAB 500 MG PO SCH (00:47)
[2024-05-06] MEDS: D5 1/2 NS + KCL 20 MEQ/L 1,000 ML IV SCH (01:08)
[2024-05-06 05:06] LABS: BASOPHILS # (AUTO) 0.1 X10^3/uL (0.0-0.1); BASOPHILS % (AUTO) 0.9 % (0.2-1.0); EOSINOPHILS # (AUTO) 0.2 x10^3/uL (0.0-0.2); EOSINOPHILS % (AUTO) 1.7 % (0.9-2.9); HEMATOCRIT 34.4 % (36.0-47.0); HEMOGLOBIN 11.3 g/dL (12.0-16.0); LYMPHOCYTES # (AUTO) 1.7 X10^3/uL (1.3-2.9); MEAN CORPUSCULAR HEMOGLOBIN 28.8 pg (27.0-34.0); MEAN CORPUSCULAR VOLUME 87.2 fL (80.0-100.0); MEAN PLATELET VOLUME 8.2 fL (7.4-11.0); MONOCYTES # (AUTO) 0.8 x10^3/uL (0.3-0.8); MONOCYTES % (AUTO) 8.2 % (0.0-13.0); NEUTROPHILS # (AUTO) 6.8 x10^3/uL (2.2-4.8); NEUTROPHILS % (AUTO) 71.2 % (42.0-75.0); PLATELET COUNT 289 X10^3/uL (150.0-450.0); RED BLOOD COUNT 3.94 X10^6/uL (3.5-5.4); RED CELL DISTRIBUTION WIDTH 13.8 % (11.6-16.5); WHITE BLOOD COUNT 9.6 X10^3/uL (3.6-10.0)
[2024-05-06 05:22] LABS: ALANINE AMINOTRANSFERASE 22 Units/L (12-78); ALBUMIN 2.7 g/dL (3.4-5.0); ALKALINE PHOSPHATASE 151 Units/L (46-116); ASPARTATE AMINO TRANSFERASE 25 Units/L (15-37); BLOOD UREA NITROGEN 10 mg/dL (7-18); CALCIUM 9.8 mg/dL (8.5-10.1); CARBON DIOXIDE 26.6 mmol/L (21-32); CHLORIDE 112 mmol/L (98-107); COR CA(FOR HYPOALB) 10.8 mg/dL (8.5-10.1); COR NA(FOR HYPERGLY) 152 mmol/L (136-145); CREATININE 0.98 mg/dL (0.55-1.02); GLUCOSE 146 mg/dL (65-99); POTASSIUM 4.1 mmol/L (3.5-5.1); TOTAL PROTEIN 6.8 g/dL (6.4-8.2); eGFR NON BLACK RACES 59 (>60)
[2024-05-06 05:24] LABS: PLATELET MORPHOLOGY COMMENT NORMAL (NORMAL)
[2024-05-06 05:30] LABS: SODIUM 151 mmol/L (136-145)
--- NOTE | 2024-05-06 06:32 | RAD ---
EXAM: CHEST, 1 VIEW HISTORY: hypoxia, hx lung cancer; COMPARISON: One view of chest from 11/12/2023. FINDINGS: SUPPORT DEVICES: None. HEART/MEDIASTINUM: No significant abnormality. LUNGS: No significant pulmonary abnormality. No significant pleural effusion. No pneumothorax. ADDITIONAL FINDINGS: Unchanged breast implants. IMPRESSION: No acute findings. THIS IS AN ELECTRONICALLY VERIFIED FINAL REPORT 05/06/2024 6:29 AM - Electronically signed by Benny Curran MD
[2024-05-06] MEDS: PROTONIX TAB 40 MG PO SCH (09:32)
[2024-05-06] MEDS: PROzac PO SCH (09:32)
[2024-05-06] MEDS: VALIUM INJ IVP SCH (12:27)
[2024-05-06] MEDS: PROTONIX INJ 40 MG VIAL IVP SCH (12:37)
--- NOTE | 2024-05-06 13:30 | DR.H&P ---
H&P History & Physical for Day of: H&P Date: 05/06/24 Chief Complaint Chief Complaint: Worsening mental status History of Present Illness History of Present Illness: Patient seen with nurse for daily rounds with at bedside. Patient with a recent diagnosis of lung cancer metastatic to the brain. She has had a tumor resection. She had been doing well until this week. Had a fall and since then her mental status has declined. She is on hospice but has been becoming combative at home with her and daughter. They are unable to care for her there. Her intake has been very poor and they have not been able to give her medicines even with crushing. They are here for IV hydration, medication management, and placement in a care facility. ROS: 12 point review of system negative septa as noted in HPI. Most of history is given by the and from chart review. PE: Thin, elderly female in no acute distress. Resting comfortably in bed and easily aroused. She is pleasantly confused at the moment. Heart regular rate and rhythm. Lungs diminished due to shallow respirations. Belly is soft, NT, ND with present bowel sounds. Skin with decreased turgor. Past Medical History Past Medical History: Anxiety, Arthritis, Coronary Artery Disease and Hypertension Past Surgical History Surgical History: Ortho Surgery and Other Family History Family Medical History: [place] Social History Does patient currently use any type of tobacco product: No Type of Tobacco Use: None Does any household member use tobacco: No Alcohol Use: None Drug Use: None Medications Home Medications: Home Medications Medication Instructions Recorded Confirmed Type fentanyl 25 mcg/hr transdermal 1 patch Q3D 05/05/24 05/05/24 History patch fluoxetine 40 mg capsule 40 mg PO QDAY 05/05/24 05/05/24 History lorazepam (bulk) 100 % powder 1 ea miscellaneous TID PRN 05/05/24 05/05/24 History pantoprazole 40 mg tablet,delayed 40 mg PO QDAY 05/05/24 05/05/24 History release Allergies Allergies Allergy/AdvReac Type Severity Reaction Status Date / Time No Known Drug Allergies Allergy Unknown Verified 05/05/24 16:38 Labs 05/06/24 04:04 05/06/24 04:04 Labs: Laboratory WBC 9.6 X10^3/uL (3.6-10.0) 05/06/24 04:04 RBC 3.94 X10^6/uL (3.5-5.4) 05/06/24 04:04 Hgb 11.3 g/dL (12.0-16.0) L 05/06/24 04:04 Hct 34.4 % (36.0-47.0) L 05/06/24 04:04 MCV 87.2 fL (80.0-100.0) 05/06/24 04:04 MCH 28.8 pg (27.0-34.0) 05/06/24 04:04 MCHC 33.0 g/dL (33.0-35.0) 05/06/24 04:04 RDW 13.8 % (11.6-16.5) 05/06/24 04:04 Plt Count 289 X10^3/uL (150.0-450.0) 05/06/24 04:04 Plt Count Comment Adequate (ADEQUATE) 05/06/24 04:04 MPV 8.2 fL (7.4-11.0) 05/06/24 04:04 Neut % (Auto) 71.2 % (42.0-75.0) 05/06/24 04:04 Lymph % (Auto) 18.0 % (21.0-51.0) L 05/06/24 04:04 [place] % (Auto) 8.2 % (0.0-13.0) 05/06/24 04:04 Eos % (Auto) 1.7 % (0.9-2.9) 05/06/24 04:04 Baso % (Auto) 0.9 % (0.2-1.0) 05/06/24 04:04 Neut # (Auto) 6.8 x10^3/uL (2.2-4.8) H 05/06/24 04:04 Lymph # (Auto) 1.7 X10^3/uL (1.3-2.9) 05/06/24 04:04 [place] # (Auto) 0.8 x10^3/uL (0.3-0.8) 05/06/24 04:04 Eos # (Auto) 0.2 x10^3/uL (0.0-0.2) 05/06/24 04:04 Baso # (Auto) 0.1 X10^3/uL (0.0-0.1) 05/06/24 04:04 Absolute Nucleated RBC 0.0 /100WBC 05/06/24 04:04 Total Counted 100 05/06/24 04:04 Neutrophils % (Manual) 71 % (39-76) 05/06/24 04:04 Band Neutrophils % 0 % (0-10) 05/05/24 17:13 Lymphocytes % (Manual) 22 % (13-43) 05/06/24 04:04 Monocytes % (Manual) 5 % (4-9) 05/06/24 04:04 Eosinophils % (Manual) 2 % (0-6) 05/06/24 04:04 Basophils % (Manual) 0 % (0-1) 05/05/24 17:13 Plt Morphology Comment Normal (NORMAL) 05/06/24 04:04 RBC Morphology Normal (NORMAL) 05/06/24 04:04 [place] Cells Slight A 05/05/24 17:13 Sodium 151 mmol/L (136-145) H* 05/06/24 04:04 Corrected Sodium 152 mmol/L (136-145) H 05/06/24 04:04 Potassium 4.1 mmol/L (3.5-5.1) 05/06/24 04:04 Chloride 112 mmol/L (98-107) H 05/06/24 04:04 Carbon Dioxide 26.6 mmol/L (21-32) 05/06/24 04:04 BUN 10 mg/dL (7-18) 05/06/24 04:04 Creatinine 0.98 mg/dL (0.55-1.02) 05/06/24 04:04 Est GFR (MDRD) Af Amer > 60 (>60) 05/06/24 04:04 Est GFR (MDRD) Non-Af 59 (>60) 05/06/24 04:04 Glucose 146 mg/dL (65-99) H 05/06/24 04:04 Calcium 9.8 mg/dL (8.5-10.1) 05/06/24 04:04 Corrected Calcium 10.8 mg/dL (8.5-10.1) H 05/06/24 04:04 Total Bilirubin 0.30 mg/dL (0.2-1.0) 05/06/24 04:04 AST 25 Units/L (15-37) 05/06/24 04:04 ALT 22 Units/L (12-78) 05/06/24 04:04 Alkaline Phosphatase 151 Units/L (46-116) H 05/06/24 04:04 Creatine Kinase 59 Units/L (26-192) 05/05/24 17:10 Troponin I High Sens 31.1 ng/L (4.0-60.0) 05/05/24 17:10 Total Protein 6.8 g/dL (6.4-8.2) 05/06/24 04:04 Albumin 2.7 g/dL (3.4-5.0) L 05/06/24 04:04 Globulin 4.1 g/dL (2.5-4.5) 05/06/24 04:04 Albumin/Globulin Ratio 0.7 Ratio (1.1-2.1) L 05/06/24 04:04 Physical Exam Vital Signs: Vital Signs Temperature 98.9 F Pulse Rate 84 Pulse Rate 85 Pulse Rate 86 Pulse Rate 83 Pulse Rate 85 Pulse Rate 85 Pulse Rate 88 Pulse Rate 90 Pulse Rate 101 Pulse Rate 108 Pulse Rate 91 Pulse Rate 91 Pulse Rate 91 Pulse Rate 87 Pulse Rate 87 Pulse Rate 88 Pulse Rate 91 Respiratory Rate 20 Respiratory Rate 20 Respiratory Rate 18 Respiratory Rate 21 Respiratory Rate 17 Respiratory Rate 18 Respiratory Rate 23 Respiratory Rate 24 Respiratory Rate 31 Respiratory Rate 28 Respiratory Rate 17 Respiratory Rate 22 Respiratory Rate 23 Respiratory Rate 22 Respiratory Rate 23 Respiratory Rate 21 Respiratory Rate 19 Blood Pressure 119/75 Blood Pressure 123/75 Blood Pressure 123/76 Blood Pressure 149/82 Blood Pressure 138/82 Blood Pressure 135/78 Blood Pressure 137/87 O2 Sat by Pulse Oximetry 100 O2 Sat by Pulse Oximetry 100 O2 Sat by Pulse Oximetry 100 O2 Sat by Pulse Oximetry 100 O2 Sat by Pulse Oximetry 100 O2 Sat by Pulse Oximetry 100 O2 Sat by Pulse Oximetry 100 O2 Sat by Pulse Oximetry 98 O2 Sat by Pulse Oximetry 87 O2 Sat by Pulse Oximetry 97 O2 Sat by Pulse Oximetry 98 O2 Sat by Pulse Oximetry 99 O2 Sat by Pulse Oximetry 100 O2 Sat by Pulse Oximetry 100 O2 Sat by Pulse Oximetry 100 O2 Sat by Pulse Oximetry 99 O2 Sat by Pulse Oximetry 99 Assessment/Plan (1) Lung cancer metastatic to brain: Narrative Support Text: Plan to proceed with inpatient hospice at a long-term care facility. May be beneficial to put her in hospice house. For now we will stop blood draws. Continue IV hydration. Switch all medications to IV. Will stop Keppra and go to IV Valium for seizure prophylaxis. Will continue IV Ativan for anxiety and agitation as needed. is agreeable to these plans. Status: Acute (2) Adult failure to thrive: Narrative Support Text: Will continue with IV hydration for now. No plans for TPN or G-tube placement Status: Acute (3) Cachexia: Narrative Support Text: See above. Secondary to cancer. Status: Acute (4) Anxiety and depression: Narrative Support Text: Complicated by prolonged treatment of a sudden loss of their daughter to an MVC along with her health issues and recent brain tumor resection. Ativan prn. Overall with a very poor prognosis and need for palliative care. Status: Acute
[2024-05-07 06:21] VITALS: BMI 17.0
[2024-05-07] MEDS: ATIVAN INJ 2 MG VIAL ONE (14:45)
[2024-05-07] MEDS: VALIUM INJ IVP PRN (14:49)
--- NOTE | 2024-05-07 14:55 | NOTE.SOAP ---
Soap Note Note for Day of Date of Exam: 05/07/24 Subjective Data Subjective Data: Patient seen for morning rounds with nurse. Did have a little bit of combativeness overnight but that only occurred once. Overall rested well. Waxing and waning level of consciousness. Family not at bedside this morning. Plan is still for inpatient hospice care. Objective Data Objective Data: Cachectic female in no acute distress. Resting comfortably in bed. Respirations shallow. Bowel sounds hypoactive. Decreased skin turgor. Assessment Assessment: 1. Lung cancer metastatic to brain. Continue with plans for inpatient rehab. Continue Valium IV for seizure prophylaxis. 2. Adult failure to thrive. Continue IV fluids for now. 3. Cachexia. Due to cancer. Continue IVF's. 4. Anxiety and depression. Continue as needed Ativan.
[2024-05-07] MEDS: VALIUM INJ IVP SCH (22:28)
[2024-05-08] MEDS: D5W 1,000 ML IV 1,000 ML IV SCH (11:35)
[2024-05-08] MEDS: ATIVAN INJ 2 MG VIAL IVP PRN (11:36)
[2024-05-08] MEDS: LOVENOX INJ 30 MG SYR SC SCH (14:00)
[2024-05-08] MEDS ORDERED: PHARMACY CONSULT - LOVENOX XX SCH (15:00)
[2024-05-08] MEDS ORDERED: HEPARIN SODIUM IN D5W 25,000 UNITS/500 ML BAG IV PRN (15:17)
[2024-05-09 16:19] VITALS: RESP 18
[2024-05-10 09:55] VITALS: BP 126/56; PULSE 97; TEMP 97.6; O2SAT 96
== END 2024-05-10 12:45 | disposition hospice, inpatient (51) ==
LOC: ICU 16:08 → ER 16:08 → ICU 21:22 → MED/SURG 05-09 12:22
PROVIDERS: ADMIT Family Medicine; ATTEND Family Medicine